=== PATIENT | female | born 1965 | race Caucasian/White ===

== ENCOUNTER 2017-01-07 23:01 | Emergency (ER) | payer OTHER, MEDICARE ==
[2017-01-07] MEDS ORDERED: DIPHENHYDRAMINE HCL IV 50 MG/ML VIAL IVP ONE ×3 (23:06→23:55)
[2017-01-07] MEDS ORDERED: RANITIDINE HCL 50 MG in 0.9 % SODIUM CHLORIDE 100ML 100 ML IVPB ONE (23:06)
[2017-01-07] MEDS ORDERED: METHYLPREDNISOLONE PF 125MG/VIAL IVP ONE (23:06)
--- NOTE | 2017-01-07 23:13 | Emergency Department Record ---
History of Present Illness - General Stated complaint: ALLERGIC REACTION Time Seen by Provider: 01/07/17 23:06 Source: Patient, Family Mode of Arrival: Ambulatory Limitations: No limitations - History of Present Illness Initial Comments: 51 yo female presents with hives and itching. She has a sinus infection and recently started and antibiotic and Fluconazole. She developed itching and hives aroudn 5 pm. No facial swelling. No trouble breathing. She has had 9 doses of clindamycin. She has multiple antibiotic and environmental allergies. The patient has had to have Epinephrine 2-3 times in the past with reactions to antibiotics and flu shots. Her last dose of Clindamycin was at 9pm. About 5 years ago she spent about one week in the hospital after an acute allergic reaction to a Flu shot. She has epipens at home but she did not have any shortness of breath or tightness in the throat prior to arrival. MD Complaint: Allergic reaction, Hives -: Hour(s) (6) Exposure: Medication Symptoms: Itching, Rash Treatment Prior to Arrival: Benadryl (25mg) Previous Allergy History: None - Related Data Allergies Allergy/AdvReac Type Severity Reaction Status Date / Time adhesive tape Allergy HIVES Unverified 12/22/16 11:32 aspirin Allergy DIFFICULTY Unverified 12/22/16 11:32 BREATHING cefprozil [From Cefzil] Allergy HIVES Unverified 12/22/16 11:32 chlorpromazine HCl Allergy HIVES Unverified 12/22/16 11:32 [From Thorazine] codeine Allergy DIFFICULTY Unverified 12/22/16 11:32 BREATHING dihydroergotamine mesylate Allergy HIVES Unverified 12/22/16 11:32 [From Migranal] hydrocodone Allergy ANAPHYLAXIS Unverified 12/22/16 11:32 hydromorphone Allergy ANAPHYLAXIS Unverified 12/22/16 11:32 meperidine HCl [From Demerol] Allergy HIVES Unverified 12/22/16 11:32 morphine Allergy DIFFICULTY Unverified 12/22/16 11:32 BREATHING nickel Allergy HIVES Unverified 12/22/16 11:32 NSAIDS (Non-Steroidal Allergy HIVES Unverified 12/22/16 11:32 Anti-Inflamma Penicillins Allergy HIVES Unverified 12/22/16 11:32 povidone-iodine Allergy HIVES Unverified 12/22/16 11:32 [From Betadine] rofecoxib [From Vioxx] Allergy ANAPHYLAXIS Unverified 12/22/16 11:32 silicone Allergy DIFFICULTY Unverified 12/22/16 11:32 BREATHING soap [From Betadine] Allergy HIVES Unverified 12/22/16 11:32 Sulfa (Sulfonamide Allergy HIVES Unverified 12/22/16 11:32 Antibiotics) sulfamethoxazole Allergy HIVES Unverified 12/22/16 11:32 [From Bactrim] tramadol Allergy ANAPHYLAXIS Unverified 12/22/16 11:32 trimethoprim [From Bactrim] Allergy HIVES Unverified 12/22/16 11:32 valproic acid Allergy HIVES Unverified 12/22/16 11:32 zolmitriptan Allergy HIVES Unverified 12/22/16 11:32 CT dye Allergy DIFFICULTY Uncoded 09/23/15 14:44 BREATHING flu shot Allergy ANAPHYLAXIS Uncoded 09/23/15 14:44 Review of Systems Constitutional: Denies: Chills, Fever, Malaise, Weakness Eyes: Denies: Eye discharge, Eye pain, Photophobia, Vision change ENT: Reports: Congestion. Denies: Ear pain, Throat pain Respiratory: Denies: Cough, Dyspnea, Hemoptysis, Stridor, Wheezes Cardiovascular: Denies: Chest pain, Dyspnea on exertion, Palpitations, Syncope Endocrine: Denies: Fatigue Gastrointestinal: Denies: Diarrhea, Nausea, Vomiting Genitourinary: Denies: Dysuria, Urgency Musculoskeletal: Denies: Arthralgia, Back pain, Myalgia Skin: Reports: Change in color, Pruritus, Rash. Denies: Bruising Neurological: Denies: Confusion, Headache Psychiatric: Denies: Anxiety Hematological/Lymphatic: Denies: Blood Clots, Easy bleeding, Easy bruising, Swollen glands Past Medical History - SOCIAL HISTORY Smoking Status: Never smoker Drug Use: None - RESPIRATORY Hx Respiratory Disorders: No - CARDIOVASCULAR Hx Cardio Disorders: No - NEURO Hx Headaches: Yes Comment:: restless leg - GI Hx Reflux: Yes - Hx Kidney Stones: Yes Hx Renal Disease: Yes (renal tubular acidosis) - ENDOCRINE Hx Diabetes: No Hx Thyroid Disease: No Comment:: vitamin D deficiency - MUSCULOSKELETAL Hx Arthritis: Yes Hx Fibromyalgia: Yes Comment:: DJD Physical Exam - General General Appearance: Alert, Oriented x3, Cooperative, No acute distress - Head Head exam: Atraumatic, Normocephalic, Normal inspection - Eye Eye exam: Normal appearance. negative: Conjunctival injection, Periorbital swelling - ENT ENT exam: Normal exam, Mucous membranes moist Ear exam: Normal external inspection Nasal Exam: Normal inspection Mouth exam: Normal external inspection - Neck Neck exam: Normal inspection, Full ROM. negative: Tenderness - Respiratory Respiratory exam: Normal lung sounds bilaterally. negative: Respiratory distress, Rhonchi, Stridor, Wheezes - Cardiovascular Cardiovascular Exam: Regular rate, Normal rhythm, Normal heart sounds - GI/Abdominal GI/Abdominal exam: Soft. negative: Tenderness - Rectal Rectal exam: Deferred - exam: Deferred - Extremities Extremities exam: negative: Normal inspection (hives to forearm), Pedal edema - Back Back exam: Reports: Normal inspection - Neurological Neurological exam: Alert, Oriented X3 - Psychiatric Psychiatric exam: Normal affect, Normal mood. negative: Agitated, Anxious - Skin Skin exam: Dry, Intact, Normal color, Warm Course - Reevaluation(s) Reevaluation #1: 01/07/17 23:14 No acute distress, resting comfortably. 01/07/17 23:33 The patient still has itching She feels a tickle like feeling in her throat. Her lungs are clear. No voice changes Given her history of requiring Epi 2-3 times in the past I recommend a dose now given her tickle in her throat. 01/07/17 23:50 The patient has a cough now. No wheezing. She does not feel better after the first dose of Epi. She dose not feel worse either. She was hospitalized once for a week at [facility]. No history of intubation. 01/07/17 23:55 Given her significant history I recommend transfer She prefers [facility] for transfer Given her persistent cough and feeling in her throat second Epi dose ordered. [facility] CALL at [facility] was contacted. Waiting for call back/ 01/08/17 00:04 CBC reviewed. No acute change 01/08/17 00:09 Summary of medications to this point in time Benadryl 100mg Epi 0.3mg x 2 Solumedrol 125mg Zantac 50mg Albuterol X 1 treatment 01/08/17 00:27 Dr Nunes accepts the patient for transfer The patient is doing better. The cough persists. Vitals stable. No current wheeze. 01/08/17 00:44 Bed assigned at [facility] The patient was rechecked. Clear lungs. cough persists. Voice is clear. She feels no distress. 97% on RA. Ready for transfer. Stable. Medical Decision Making - Lab Data Result diagrams: 01/07/17 23:10 01/07/17 23:10 Disposition Disposition: Transfer Clinical Impression: Hives, Hypokalemia Anaphylactic reaction Qualifiers: Encounter type: initial encounter Qualified Code(s): T78.2XXA - Anaphylactic shock, unspecified, initial encounter Disposition: Acute Care Hospital Transfer Transfer To: [facility] Reason For Transfer: anaphylaxis Accepting Physician: Des Time Discussed w/Accepting Physician: 00:20 Condition: (3) Guarded Forms: Patient Portal Access Time of Disposition: 23:57 Quality - Quality Measures Quality Measures: N/A - Blood Pressure Screening Does Patient Have Any of the Following: No Blood Pressure Classification: Normal BP Reading Systolic Measurement: 117 Diastolic Measurement: 75 Screening for High Blood Pressure: < Normal BP, F/U Not Required > [G8783] Pre-Hypertensive Follow-up Interventions: Referral to alternative/primary care provider.
[2017-01-07] MEDS ORDERED: EPINEPHRINE 1 MG/ML AMPUL IM ONE ×2 (23:33→23:51)
[2017-01-07] MEDS ORDERED: 0.9 % SODIUM CHLORIDE 1,000 ML BAG IV ONE (23:40)
[2017-01-07] MEDS ORDERED: ALBUTEROL SULFATE (0.083%) 2.5 MG/3 ML NEB INH ONE (23:43)
[2017-01-07 23:53] LABS: BASO % 0.2 % (0-6); EOS % 0.2 % (0-6); GRAN % 59.9 % (47-80); HEMATOCRIT 43.9 % (35.0-47.0); HEMOGLOBIN 14.8 gm/dl (11.6-16.0); LYMPH % 31.1 % (16-45); MEAN CELL VOLUME 86.1 fl (81-97); MEAN CORPUSCULAR HGB CONC 33.7 g/dl (32-36); MONO % 8.6 % (0-9); PLATELET COUNT 396 K/uL (130-400); RED CELL DISTRIBUTION WIDTH 14.3 % (11.5-14.5); WHITE BLOOD COUNT W/O DIFF 9.3 K/uL (4.2-12.2)
[2017-01-08 00:04] LABS: BLOOD UREA NITROGEN 15 mg/dL (6-20); CREATININE 0.7 mg/dL (0.5-0.9); EST GLOMERULAR FILTRATION RATE > 60 mL/min
[2017-01-08 00:07] LABS: GLUCOSE,RANDOM 86 mg/dL (74-109)
[2017-01-08] MEDS ORDERED: SOD CHLOR 0.9% WITH KCL 40MEQ 40 MEQ/1,000 ML IV.SOLN IV ONE (00:09)
== END 2017-01-08 00:59 | disposition short-term general hospital (02) ==
LOC: ER 23:01
DX: T78.2XXA Anaphylactic shock, unspecified, initial encounter (principal); L50.9 Urticaria, unspecified; R05 Cough; E87.6 Hypokalemia; R09.89 Other specified symptoms and signs involving the circulatory and respiratory systems
CPT/HCPCS: 80048; 85025; 96365; 96372; 96375; 96376; 99285; J0171; J1200; J2780; J2930; J7030; J7613

== ENCOUNTER 2017-07-21 19:28 | Emergency (ER) | payer BC, MEDICARE ==
--- NOTE | 2017-07-21 19:39 | Emergency Department Record ---
History of Present Illness - General Chief complaint: Edema Stated complaint: WELLING IN LEGS AND HANDS Time Seen by Provider: 07/21/17 19:37 Source: Patient Mode of Arrival: Wheelchair Limitations: No limitations - History of Present Illness Initial comments: 52 yo female presents to ED from [facility] for evaluation of increased lower extremity edema and "6 lb weight gain" over the past several days. Patient reports that her edema is bilateral, denies shortness of breath or history of CHF, and denies history of DVT. Patient does report using HCTZ at home as well. 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 MD Complaint: Extremity swelling Onset/Timin -: Days(s) Location: Bilateral, Lower Leg History of Same: No Consistency: Constant Improves with: Nothing Worsens with: Nothing, Walking Associated Symptoms: Denies other symptoms - Related Data Allergies Allergy/AdvReac Type Severity Reaction Status Date / Time adhesive tape Allergy HIVES Unverified 12/22/16 11:32 aspirin Allergy DIFFICULTY Unverified 12/22/16 11:32 BREATHING cefprozil [From Cefzil] Allergy HIVES Unverified 12/22/16 11:32 chlorpromazine HCl Allergy HIVES Unverified 12/22/16 11:32 [From Thorazine] clindamycin Allergy ANAPHYLAXIS Unverified 07/21/17 19:05 codeine Allergy DIFFICULTY Unverified 12/22/16 11:32 BREATHING dihydroergotamine mesylate Allergy HIVES Unverified 12/22/16 11:32 [From Migranal] fluconazole Allergy ANAPHYLAXIS Unverified 07/21/17 19:05 hydrocodone Allergy ANAPHYLAXIS Unverified 12/22/16 11:32 hydromorphone Allergy ANAPHYLAXIS Unverified 12/22/16 11:32 meperidine HCl [From Demerol] Allergy HIVES Unverified 12/22/16 11:32 morphine Allergy DIFFICULTY Unverified 12/22/16 11:32 BREATHING nickel Allergy HIVES Unverified 12/22/16 11:32 NSAIDS (Non-Steroidal Allergy HIVES Unverified 12/22/16 11:32 Anti-Inflamma povidone-iodine Allergy HIVES Unverified 12/22/16 11:32 [From Betadine] rofecoxib [From Vioxx] Allergy ANAPHYLAXIS Unverified 12/22/16 11:32 silicone Allergy DIFFICULTY Unverified 12/22/16 11:32 BREATHING soap [From Betadine] Allergy HIVES Unverified 12/22/16 11:32 Sulfa (Sulfonamide Allergy HIVES Unverified 12/22/16 11:32 Antibiotics) sulfamethoxazole Allergy HIVES Unverified 12/22/16 11:32 [From Bactrim] tramadol Allergy ANAPHYLAXIS Unverified 12/22/16 11:32 trimethoprim [From Bactrim] Allergy HIVES Unverified 12/22/16 11:32 valproic acid Allergy HIVES Unverified 12/22/16 11:32 zolmitriptan Allergy HIVES Unverified 12/22/16 11:32 CT dye Allergy DIFFICULTY Uncoded 09/23/15 14:44 BREATHING flu shot Allergy ANAPHYLAXIS Uncoded 09/23/15 14:44 Travel Screening - Travel/Exposure Within Last 30 Days Have you traveled within the last 30 days?: No - Travel Symptoms Symptom Screening: None Review of Systems Constitutional: Denies: Chills, Fever, Malaise, Night sweats Eyes: Denies: Eye discharge, Eye pain ENT: Denies: Congestion, Ear pain, Epistaxis Respiratory: Denies: Cough, Dyspnea Cardiovascular: Denies: Chest pain, Dyspnea on exertion Endocrine: Denies: Fatigue, Heat or cold intolerance Gastrointestinal: Denies: Abdominal pain, Nausea, Vomiting Genitourinary: Denies: Incontinence, Retention Musculoskeletal: Denies: Arthralgia, Back pain, Gout, Joint swelling Skin: Denies: Bruising, Change in color Neurological: Denies: Abnormal gait, Confusion, Headache, Seizure Psychiatric: Denies: Anxiety Hematological/Lymphatic: Denies: Anemia, Blood Clots Past Medical History - SOCIAL HISTORY Smoking Status: Never smoker Alcohol Use: None Drug Use: None - RESPIRATORY Hx Respiratory Disorders: No Hx Asthma: Yes - CARDIOVASCULAR Hx Cardio Disorders: No - NEURO Hx Neuro Disorders: Yes Hx Headaches: Yes Comment:: restless leg - GI Hx GI Disorders: Yes Hx Reflux: Yes - Hx Genitourinary Disorders: Yes Hx Kidney Stones: Yes Hx Renal Disease: Yes (renal tubular acidosis) - ENDOCRINE Hx Endocrine Disorders: Yes Hx Diabetes: No Hx Thyroid Disease: No Comment:: vitamin D deficiency - MUSCULOSKELETAL Hx Musculoskeletal Disorders: Yes Hx Arthritis: Yes Hx Fibromyalgia: Yes Comment:: DJD - PSYCH Hx Psych Problems: No - HEMATOLOGY/ONCOLOGY Hx Hematology/Oncology Disorders: No Family Medical History Any Significant Family History?: Yes Hx Diabetes: Father Hx Heart Disease: Father Hx HTN: Father, Grandparents Hx Stroke: Grandparents Physical Exam - General General Appearance: Alert, Oriented x3, Cooperative, No acute distress Limitations: No limitations - Head Head exam: Atraumatic, Normocephalic, Normal inspection Head exam detail: negative: Abrasion, Contusion, Rodriguez's sign, General tenderness, Hematoma, Laceration - Eye Eye exam: Normal appearance. negative: Conjunctival injection, Periorbital swelling, Periorbital tenderness, Scleral icterus - ENT Ear exam: negative: Auricular hematoma, Auricular trauma Nasal Exam: negative: Active bleeding, Discharge, Dried blood, Foreign body Mouth exam: negative: Drooling, Laceration, Tongue elevation - Neck Neck exam: Normal inspection. negative: Meningismus, Tenderness - Respiratory Respiratory exam: Normal lung sounds bilaterally. negative: Rales, Respiratory distress, Rhonchi, Stridor - Cardiovascular Cardiovascular Exam: Regular rate, Normal rhythm, Normal heart sounds - GI/Abdominal GI/Abdominal exam: Soft. negative: Rebound, Rigid, Tenderness - Rectal Rectal exam: Deferred - exam: Deferred - Extremities Extremities exam: Pedal edema (2+ bilaterally). negative: Calf tenderness, Tenderness - Back Back exam: Denies: CVA tenderness (R), CVA tenderness (L) - Neurological Neurological exam: Alert, Normal gait, Oriented X3 - Psychiatric Psychiatric exam: Normal affect, Normal mood - Skin Skin exam: Normal color. negative: Abrasion Type of lesion: negative: abrasion Course Vital Signs 07/21/17 19:33 Temperature 98.1 F Pulse Rate 90 Respiratory 18 Rate Blood Pressure 140/81 Pulse Ox 98 - Reevaluation(s) Reevaluation #1: 07/21/17 20:15 Labs reviewed and are grossly unremarkable for an acute process. UA pending at this time. Reevaluation #2: 07/21/17 20:23 UA reviewed and is grossly unremarkable for an acute process. Patient was updated on all results and the importance of keeping her lower extremities elevated as much as possible as well as contacting her PCP to determine if her HCTZ should be increased for a short duration. Medical Decision Making - Lab Data Result diagrams: 07/21/17 19:40 07/21/17 19:40 Disposition Disposition: Discharge Clinical Impression: Lower extremity edema Disposition: Home, Self-Care Condition: (2) Stable Instructions: Leg Edema (ED) Additional Instructions: Return to ED if your symptoms worsen or if you have any concerns. Follow-up with your family doctor in 3-5 days as directed. Keep lower extremities elevated as much as possible to reduce edema. Forms: Patient Portal Access Time of Disposition: 20:25 Quality - Quality Measures Quality Measures: N/A - Blood Pressure Screening Does Patient Have Any of the Following: No Blood Pressure Classification: Pre-Hypertensive BP Reading Systolic Measurement: 140 Diastolic Measurement: 81 Screening for High Blood Pressure: < Pre-Hypertensive BP, F/U Documented > [ G8950] Pre-Hypertensive Follow-up Interventions: Referral to alternative/primary care provider.
[2017-07-21 19:52] LABS: BASO % 0.2 % (0-6); EOS % 0.2 % (0-6); HEMATOCRIT 39.6 % (35.0-47.0); HEMOGLOBIN 13.1 gm/dl (11.6-16.0); LYMPH % 36.4 % (16-45); MEAN CELL VOLUME 86.8 fl (81-97); MEAN CORPUSCULAR HEMOGLOBIN 28.7 pg (27-33); MEAN CORPUSCULAR HGB CONC 33.1 g/dl (32-36); MEAN PLATELET VOLUME 9.5 fl (7.4-10.4); MONO % 7.2 % (0-9); PLATELET COUNT 387 K/uL (130-400); RED BLOOD COUNT 4.56 M/uL (3.80-5.40); RED CELL DISTRIBUTION WIDTH 14.9 % (11.5-14.5); WHITE BLOOD COUNT W/O DIFF 5.6 K/uL (4.2-12.2)
[2017-07-21 20:02] LABS: BLOOD UREA NITROGEN 12 mg/dL (6-20); CREATININE 0.7 mg/dL (0.5-0.9); EST GLOMERULAR FILTRATION RATE > 60 mL/min
[2017-07-21 20:03] LABS: TOTAL PROTEIN 6.7 g/dL (6.6-8.7)
[2017-07-21 20:05] LABS: GLUCOSE,RANDOM 135 mg/dL (74-109)
[2017-07-21 20:07] LABS: ALT/SGPT 42 U/L (<33); AST/SGOT 26 U/L (10.0-35.0)
[2017-07-21 20:08] LABS: ALB/GLOB RATIO 1.7 (1.1-1.8); ALBUMIN 4.2 g/dL (4.0-5.0); ALKALINE PHOSPHATASE 80 U/L (35-104)
[2017-07-21 20:09] LABS: NTpro B-NATRIURETIC PEPTIDE 43.67 pg/mL (<125)
[2017-07-21 20:18] LABS: URINE APPEARANCE CLEAR; URINE BILIRUBIN NEGATIVE (NEGATIVE); URINE BLOOD NEGATIVE (NEGATIVE); URINE COLOR YELLOW; URINE GLUCOSE (UA) NEGATIVE (NEGATIVE); URINE KETONE NEGATIVE (NEGATIVE); URINE LEUKOCYTE ESTERASE NEGATIVE (NEGATIVE); URINE NITRITE NEGATIVE (NEGATIVE); URINE PROTEIN TRACE (NEGATIVE)
== END 2017-07-21 20:34 | disposition home or self-care (01) ==
LOC: ER 19:28
DX: R60.0 Localized edema (principal); Q61.5 Medullary cystic kidney
CPT/HCPCS: 80053; 81003; 83880; 85025; 99283